=== PATIENT | female | born 1970 | race Caucasian/White ===

== ENCOUNTER 2016-05-22 09:28 | Emergency (ER) ==
[2016-05-22] MEDS ORDERED: ASPIRIN PO STA (10:13)
[2016-05-22] MEDS ORDERED: DUONEB (A & A) INH ONE ×2 (10:14→11:11)
[2016-05-22] MEDS ORDERED: SOLU-MEDROL IV ONE (10:14)
--- NOTE | 2016-05-22 10:18 | EKG Report ---
Test Performed on : 05/22/2016 09:31:52 AM Test Reason : CHEST PAIN Blood Pressure : / mmHG Vent. Rate : 097 BPM Atrial Rate : 097 BPM P-R Int : 148 ms QRS Dur : 078 ms QT Int : 360 ms P-R-T Axes : 065 087 230 degrees QTc Int : 457 ms Normal sinus rhythm. ST & T wave abnormality, consider inferior ischemia ST & T wave abnormality, consider anterolateral ischemia Abnormal ECG When compared with ECG of 25-MAY-2015 07:33, Vent. rate has increased BY 45 BPM T wave inversion now evident in Inferior leads T wave inversion now evident in Anterolateral leads Unconfirmed Result
--- NOTE | 2016-05-22 10:25 | PROVIDER DOCUMENTATION ---
HPI-Respiratory General <Orion Richathan - Last Filed: 05/22/16 10:52> - General Source: patient <Irais Romano - Last Filed: 05/22/16 11:35> - General Chief Complaint: Shortness of Breath Stated Complaint: CHEST PAIN Time Seen by Provider: 05/22/16 10:02 Allergies/Adverse Reactions: Patient Allergies Allergy/AdvReac Type Severity Reaction Status Date / Time diphenhydramine HCl * Allergy Mild RASH Verified 05/22/16 09:39 [From [facility]] Home Medications: Home Medication List Medication Instructions Recorded Confirmed Last Taken Type Aspirin [Aspir 81] 81 mg PO DAILY 12/23/11 05/22/16 05/24/15 History Estradiol [Estrace] 2 mg PO DAILY 12/23/11 05/22/16 05/23/15 History Famotidine 10 mg PO DAILY 12/23/11 05/22/16 05/24/15 History Lorazepam [Ativan] 1 mg PO BID 12/23/11 05/22/16 05/23/15 History Nitroglycerin 0.4 mg SL DIRECTED 12/23/11 05/22/16 12/22/11 20:00 History Promethazine [Phenergan] 25 mg PO Q6-8H PRN PRN 12/23/11 05/22/16 12/20/11 21: 00 History ATORVAstatin [Lipitor] 80 mg PO HS #0 tablet 12/25/11 05/22/16 05/23/15 Rx Gabapentin 300 mg PO DAILY 05/24/15 05/22/16 05/24/15 History Pramipexole Di-HCl [Mirapex] 2 mg PO BID 05/24/15 05/22/16 Unknown History Albuterol 2.5MG/Ipratrop 0.5MG 3 ml INH Q4-6H PRN PRN #1 neb 05/22/16 Unknown Rx [Duoneb] Albuterol Sulfate [Proair Hfa] 2 puff IH Q4HR 05/22/16 05/22/16 05/22/16 09:00 History Albuterol Sulfate [Proair Hfa] 8.5 gm IH Q4H PRN PRN #1 hfa.aer.ad 05/22/16 Unknown Rx Azithromycin [Zithromax Z-Irving] 250 mg PO DIRECTED #1 pkg 05/22/16 Unknown Rx Carvedilol 3.125 mg PO BID 05/22/16 05/22/16 Unknown History Furosemide [Lasix] 20 mg PO DAILY 05/22/16 05/22/16 Unknown History Montelukast Sodium [Singulair] 10 mg PO HS 05/22/16 05/22/16 Unknown History Nebulizer [Aeroneb Go Nebuliser] 1 each DIRECTED #1 each 05/22/16 Unknown Rx Potassium Chloride [Klor-Con 10] 10 meq PO DAILY 05/22/16 05/22/16 Unknown History - History of Present Illness-Resp Nature of Presenting Problem: 45 y/o WF c hx of COPD, CABG 3 v disease and PCI x 2, c/o sob and right sided chest pain x 3 days. Pain in the right anterior chest, radiates tot he right shoulder. States she thinks this is how her last CT presented. 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 Pain was intermittent the last two days, but has been constant with her sob since this morning. Took her albuterol inhaler this morning without relief. Takes 81 mg Aspirin daily. States she feels like "she is breathing through panty hose" and cannot get a deep breath in. Denies abdominal pain, n/v/d. Denies weight gain, has been on a trial of lasix due to weight gain, which has improved the weight gain but not her symptoms. Denies increased orthopnea or dx of CHF. Hospitalized 1 month ago in [facility] for bilateral pneumonia, no intubation (Irais Romano) Review of Systems - Adult - REVIEW OF SYSTEMS - ADULT Constitutional: reports: see HPI, rajatque. denies: chills, fever Eyes: reports: no symptoms reported. denies: decreased vision, blurred vision, double vision, eye pain Ears, Nose, Mouth & Throat: reports: no symptoms reported. denies: ear pain, nose pain, throat pain Cardiovascular: reports: see HPI, chest pain. denies: edema, orthopnea, palpitations Respiratory: reports: see HPI, cough, shortness of breath, wheezing Gastrointestinal: reports: no symptoms reported. denies: abdominal pain, diarrhea, nausea, vomiting Genitourinary: reports: no symptoms reported. denies: dysuria, discharge, frequency Musculoskeletal: reports: no symptoms reported, muscle aches. denies: bone pain , back pain Integumentary: reports: no symptoms reported. denies: rash Neurological: reports: no symptoms reported. denies: dizziness/vertigo, headache/migraines Psychiatric: reports: no symptoms reported Endocrine: reports: no symptoms reported Hematologic/Lymphatic: reports: no symptoms reported Allergic/Immunologic: reports: no symptoms reported All Other Systems: Reviewed and Negative <Irais Romano - Last Filed: 05/22/16 11:35> Past History - Adult - PAST MEDICAL HISTORY-ADULT Review of Records: reports: Old Records Reviewed, Nursing Assessment Review, Medications Reviewed, Social history reviewed & non-contributory. Major Childhood Illnesses: reports: denies history Cardiovascular: reports: cardiac disease, CAD, CHF (dx in [facility] CT Respiratory: reports: COPD Gastrointestinal: reports: denies history Obstetrical/Gynecological: reports: denies history Genitourinary: reports: denies history Musculoskeletal: reports: denies history Neurological: reports: denies history Endocrine/Immune: reports: denies history Other Conditions: reports: denies history - PRIOR SURGERIES/PROCEDURES Surgical/Procedure History: reports: CABG, hysterectomy, BTL - PRIOR HOSPITALIZATIONS Prior Hospitalizations: reports: for similar symptoms - IMMUNIZATION STATUS Childhood Immunizations: See Nurse Assessment Flu Vaccine: See Nurse Assessment - FAMILY HISTORY Family History: reviewed, not pertinent - SOCIAL HISTORY Smoking: denies Substance Use: none/never Alcohol Use Frequency: never Living Situation: family <Irais Romano - Last Filed: 05/22/16 11:35> Physical Exam-General - PHYSICAL EXAM-ADULT Initial Vital Signs Reviewed: Yes - CONSTITUTIONAL General Appearance: appears well, alert, no apparent distress - EYES Eyes: PERRL/EOMI, pink conjunctivae, other (glass eye with ptosis of the right lid) - HEAD, EARS, NOSE, MOUTH & THROAT HENMT: normocephalic/atraumatic, moist mucous membranes, normal ENT inspection, TMs normal, pharynx normal - NECK Neck: non-tender, full range of motion, supple, normal inspection. negative: lymphadenopathy - RESPIRATORY Respiratory: chest non-tender, no pleuratic chest pain, no respiratory distress , no accessory muscle use, wheezing (generalized). negative: respiratory distress, decreased breath sounds, accessory muscle use, crackles, rales, rhonchi - CARDIOVASCULAR Cardiovascular: normal peripheral pulses, regular rate, rhythm - MUSCULOSKELETAL Back Exam: normal inspection Extremity: normal gait Peripheral Pulses: radial (R): 2+, dorsalis-pedis (R): 2+, dorsalis-pedis (L): 2 + - SKIN Integumentary: normal color, normal turgor, warm/dry - NEUROLOGIC Neurologic: grossly normal, no motor/sensory deficits - PSYCHIATRIC Psych/Mental Status: normal mood/affect, normal thought content, normal thought process, oriented x 3 <Irais Romano - Last Filed: 05/22/16 11:35> Progress - EKG 1 Time of EKG reading by physician:: 10:53 EKG Read and Signed by:: Kye Edmond Rate: 97 Rhythm: NSR [place]: normal QRS: normal [place] Interval: normal ST Wave: normal <Son Rich - Last Filed: 05/22/16 10:52> - REASSESSMENT Reassessment #1 Time Reassessed: 11:33 (No longer wheezing, 100% on RA) Status: improving - XRAY 1 XRAY: Bilateral XRAY Study: Chest Impression: Normal (no pna per Dr. Pabon, radiology) <Irais Romano - Last Filed: 05/22/16 11:35> - PLAN OF CARE/RESULTS Progress/Plan/Lab Results: Vital Signs Temp Pulse Resp BP Pulse Ox 05/22/16 09:30 97.5 F L 106 H 24 148/091 100 diphenhydramine HCl * [From Benadryl] Allergy (Mild, Verified 05/22/16 09:39) RASH Aspirin [Aspir 81] 81 mg PO DAILY 12/23/11 Estradiol [Estrace] 2 mg PO DAILY 12/23/11 Famotidine 10 mg PO DAILY 12/23/11 Lorazepam [Ativan] 1 mg PO BID 12/23/11 Nitroglycerin 0.4 mg SL DIRECTED 12/23/11 Promethazine [Phenergan] 25 mg PO Q6-8H PRN PRN 12/23/11 ATORVAstatin [Lipitor] 80 mg PO HS #0 tablet 12/25/11 Gabapentin 300 mg PO DAILY 05/24/15 Pramipexole Di-HCl [Mirapex] 2 mg PO BID 05/24/15 Albuterol Sulfate [Proair Hfa] 2 puff IH Q4HR 05/22/16 Carvedilol 3.125 mg PO BID 05/22/16 Furosemide [Lasix] 20 mg PO DAILY 05/22/16 Montelukast Sodium [Singulair] 10 mg PO HS 05/22/16 Potassium Chloride [Klor-Con 10] 10 meq PO DAILY 05/22/16 Laboratory 05/22/16 05/22/16 05/22/16 10:27 10:27 10:27 WBC 6.76 RBC 4.78 Hgb 13.9 Hct 43.0 MCV 90.0 MCH 29.1 MCHC 32.3 L RDW Std Deviation 12.9 Plt Count 292 MPV 9.1 Immature Gran % (Auto) 0.1 Neut % (Auto) 46.2 Lymph % (Auto) 34.5 [place] % (Auto) 6.4 Eos % (Auto) 12.1 H Baso % (Auto) 0.7 Immature Gran # (Auto) 0.01 Neut # (Auto) 3.12 Lymph # (Auto) 2.33 [place] # (Auto) 0.43 Eos # (Auto) 0.82 H Baso # (Auto) 0.05 PT 12.2 INR 0.87 APTT (Factor Assay) 27.1 D-Dimer 0.38 Sodium Potassium Chloride Carbon Dioxide Anion Gap BUN Creatinine Estimated GFR/1.73 m2 BUN/Creatinine Ratio Glucose Calculated Osmolality Calcium Magnesium Total Bilirubin AST ALT Alkaline Phosphatase Creatine Kinase Troponin T < 0.010 Total Protein Albumin Globulin Albumin/Globulin Ratio 05/22/16 10:27 WBC RBC Hgb Hct MCV MCH MCHC RDW Std Deviation Plt Count MPV Immature Gran % (Auto) Neut % (Auto) Lymph % (Auto) [place] % (Auto) Eos % (Auto) Baso % (Auto) Immature Gran # (Auto) Neut # (Auto) Lymph # (Auto) [place] # (Auto) Eos # (Auto) Baso # (Auto) PT INR APTT (Factor Assay) D-Dimer Sodium 136 Potassium 3.9 Chloride 104 Carbon Dioxide 20 L Anion Gap 13 BUN 10 Creatinine 0.7 Estimated GFR/1.73 m2 > 60 BUN/Creatinine Ratio 14 Glucose 88 Calculated Osmolality 270 Calcium 8.9 Magnesium 2.1 Total Bilirubin 0.30 AST 17 ALT 12 Alkaline Phosphatase 92 Creatine Kinase 38 Troponin T Total Protein 7.0 Albumin 4.1 Globulin 3.0 Albumin/Globulin Ratio 1.0 Orders Category Date Time Status Cardiac Monitoring DIRECTED Care 05/22/16 10:13 Active Oxygen Therapy- ED Nursing DIRECTED Care 05/22/16 10:13 Active Saline Loc NOW Care 05/22/16 10:13 Active CHEST-2 VIEWS [RAD] Stat Exams 05/22/16 10:13 Taken CBC WITH ELECTRONIC DIFF [HEME] Stat Lab 05/22/16 10:27 Completed CK PROFILE [SP CHEM] Stat Lab 05/22/16 10:27 Completed COMPREHENSIVE METABOLIC PANEL [CHEM] Stat Lab 05/22/16 10:[address] D-D[address]ER PL [COAG] Stat Lab 05/22/16 10:27 Completed MAGNESIUM [CHEM] Stat Lab 05/22/16 10:27 Completed PRO B-NATRIURETIC PEPTIDE Stat Lab 05/22/16 10:[address] Received [address]IME WITH INR PL [COAG] Stat Lab 05/22/16 10:[address] [COAG] Stat Lab 05/22/16 10:27 Completed TROPONIN T Stat Lab 05/22/16 10:27 Completed Albuterol 2.5MG/Ipratrop 0.5MG [Duoneb (A & A)] Med 05/22/16 10:14 Discontinued 3 ml INH NOW ONE Aspirin Med 05/22/16 10:13 Discontinued 325 mg PO STAT STA Methylprednisolone Sod Succ [Solu-Medrol] Med 05/22/16 10:14 Discontinued 80 mg IV NOW ONE Aerosol Treatments Routine Oth 05/22/16 10:14 Active Aerosol Treatments Stat Oth 05/22/16 10:14 Active EKG [EKG] Stat Ther 05/22/16 10:13 Draft (Irais Romano) Departure <Son Rich - Last Filed: 05/22/16 10:52> - Departure Time of Disposition Order: 11:33 Certified Medical Emergency: Emergent <Irais Romano - Last Filed: 05/22/16 11:35> - Departure DIAGNOSIS: COPD exacerbation Disposition: HOME 01 Condition: Stable Additional Instructions: Follow up with your primary care physician ED Follow Up Instructions: You have been treated by a care provider in the Emergency Department. These instructions are being provided to you so you can have an understanding of how to care for yourself upon discharge. Upon discharge from the Emergency Department, you are responsible for making arrangements for follow-up care by a physician of your choice. Take all prescribed medications as directed. Return to the Emergency Department immediately for any new or worsening symptoms. You may call the Physician Referral phone number at [phone] to obtain a list of Physicians who are taking new patients. Prescriptions: Nebulizer [Aeroneb Go Nebuliser] 1 each MC DIRECTED #1 each Albuterol 2.5MG/Ipratrop 0.5MG [Duoneb] 3 ml INH Q4-6H PRN PRN #1 neb PRN Reason: Wheezing Albuterol Sulfate [Proair Hfa] 8.5 gm IH Q4H PRN PRN #1 hfa.aer.ad PRN Reason: Wheezing Azithromycin [Zithromax Z-Irving] 250 mg PO DIRECTED #1 pkg Attestation - Physician/ ALMA ROSA Attestation Patient care was provided by Advanced Practice Provider:: Yes Advanced Practice Provider:: Irais Romano Advanced Practice Provider documentation review:: The Mid-level provider documentation, treatment plan and medical decision making was reviewed by the physician who agrees with all treatment and medical decision making by the MLP. <Irais Romano - Last Filed: 05/22/16 11:35> Physician Attestation
[2016-05-22 10:33] LABS: MANUAL DIFF NEEDED? NO
[2016-05-22 10:37] LABS: BASO% 0.7 % (0.0-0.8); EOS# 0.82 X1000 (0.0-0.7); EOS% 12.1 % (0.0-10.0); HEMOGLOBIN 13.9 g/dL (12.0-16.0); IMM GRAN# 0.01 X1000 (0.0-0.04); IMM GRAN% 0.1 % (0.0-0.5); LYMPH# 2.33 X1000 (1.2-3.4); LYMPH% 34.5 % (20.5-51.1); MCH 29.1 PG (27-31); MCHC 32.3 g/dL (33-37); MONO# 0.43 X1000 (0.11-0.59); MONO% 6.4 % (1.7-9.3); MPV 9.1 FL (7.4-10.4); NEUT% 46.2 % (42.2-75.2); PLT 292 X1000 (130-400); RBC 4.78 XMIL (4.2-5.4)
[2016-05-22 10:59] LABS: INR 0.87 (0.86-1.15); PROTIME 12.2 Seconds (12.1-15.5)
[2016-05-22 11:00] LABS: AGAP 13; ALBUMIN 4.1 g/dL (3.5-5.0); ALKALINE PHOSPHATASE 92 U/L (32-104); BUN 10 mg/dL (8-22); CALCIUM 8.9 mg/dL (8.8-10.2); CHLORIDE 104 mmol/L (98-107); CK PROFILE 38 U/L (24-173); COSMO 270; GOT 17 U/L (10-30); GPT 12 U/L (10-36); MAGNESIUM 2.1 mg/dL (1.5-2.7); POTASSIUM 3.9 mmol/L (3.5-5.1); PTT PL 27.1 Seconds (22.6-43.9); SODIUM 136 mmol/L (136-145); TCO2 20 mmol/L (25-35)
--- NOTE | 2016-05-22 11:25 | Diag Imaging Result Document ---
PROCEDURE NAME: CHEST-2 VIEWS - 05/22/2016 FRONTAL AND LATERAL CHEST, TWO VIEWS: COMPARISON: 05/24/2015. FINDINGS: There are sternal wires and surgical clips. The lungs are well expanded. The heart is not enlarged. The vessels are not distended. There are no infiltrates. No pleural effusions. IMPRESSION: No pneumonia. No acute abnormality.
[2016-05-22 12:03] VITALS: BP 123/84
== END 2016-05-22 12:20 | disposition home or self-care (01) ==
LOC: P.ED 09:28
DX: J44.1 Chronic obstructive pulmonary disease with (acute) exacerbation (principal); R06.02 Shortness of breath; R07.89 Other chest pain; M25.511 Pain in right shoulder; R53.83 Other fatigue; R05 Cough; R06.2 Wheezing; M79.1 Myalgia; H02.401 Unspecified ptosis of right eyelid; I25.10 Atherosclerotic heart disease of native coronary artery without angina pectoris; I50.9 Heart failure, unspecified; I25.2 Old myocardial infarction; Z79.82 Long term (current) use of aspirin; Z79.899 Other long term (current) drug therapy; Z95.1 Presence of aortocoronary bypass graft; Z97.0 Presence of artificial eye
CPT/HCPCS: 36415; 71020; 80053; 82550; 83735; 83880; 84484; 85025; 85379; 85610; 85730; 93005; 94640; J2930